=== PATIENT | female | born 1975 | race Caucasian/White ===

== ENCOUNTER 2017-03-31 13:34 | Emergency (ER) | payer OTHER ==
[2017-03-31 13:50] VITALS: BP 104/72
--- NOTE | 2017-03-31 14:49 | UC ---
Complaint Female HPI - HPI Summary HPI Summary: patient has had burning with urination no abdominal pain. Does have a complex ovarian cyst and HX of herpes. is not sure if it is a UTI or something else going on. - History Of Current Complaint Chief Complaint: UCGU Stated Complaint: URINARY COMPLAINT Time Seen by Provider: 03/31/17 14:11 Hx Obtained From: Patient Hx Last Menstrual Period: 03/21/15 ?: No Onset/Duration: Sudden Onset, Lasting Days Timing: Lasting Days Severity Initially: Moderate Severity Currently: Moderate Character: Burning Aggravating Factor(s): Urination - Allergies/Home Medications Allergies/Adverse Reactions: Allergies Allergy/AdvReac Type Severity Reaction Status Date / Time No Known Allergies Allergy Verified 03/31/17 13:50 PMH/Surg Hx/FS Hx/Imm Hx Previously Healthy: Yes - Surgical History Surgical History: Yes Surgery Procedure, Year, and Place: left ankle nov 2015 - Family History Known Family History: Positive: None Negative: Cardiac Disease, Hypertension - Social History Alcohol Use: Occasionally Substance Use Type: None Smoking Status (MU): Never Smoked Tobacco Review of Systems Constitutional: Negative Skin: Negative Eyes: Negative ENT: Negative Respiratory: Negative Cardiovascular: Negative Gastrointestinal: Negative Genitourinary: Dysuria Motor: Negative Neurovascular: Negative Musculoskeletal: Negative Neurological: Negative Psychological: Negative All Other Systems Reviewed And Are Negative: Yes Physical Exam Triage Information Reviewed: Yes Appearance: Well-Appearing, Well-Nourished, Pain Distress Vital Signs: Initial Vital Signs Temp 98.6 F 03/31/17 13:45 Pulse 72 03/31/17 13:45 Resp 16 03/31/17 13:45 BP 104/72 03/31/17 13:45 Pulse Ox 100 03/31/17 13:45 Vital Signs Reviewed: Yes Eye Exam: Normal Eyes: Positive: Conjunctiva Clear ENT: Positive: Hearing grossly normal, Pharynx normal, TMs normal Dental Exam: Normal Neck exam: Normal Neck: Positive: Supple, Nontender, No Lymphadenopathy Respiratory Exam: Normal Respiratory: Positive: Chest non-tender, Lungs clear, Normal breath sounds Cardiovascular Exam: Normal Cardiovascular: Positive: RRR, No Murmur, Pulses Normal Abdominal Exam: Normal Abdomen Description: Positive: Nontender, No Organomegaly, Soft Bowel Sounds: Positive: Present Musculoskeletal Exam: Normal Musculoskeletal: Positive: Strength Intact, ROM Intact, No Edema Neurological Exam: Normal Neurological: Positive: Alert, Muscle Tone Normal Psychological Exam: Normal Skin Exam: Normal Complaint Female Dx - Course Course Of Treatment: hx obtained, exam performed, meds reviewed, UA obtained, pevlic exam performed, patient had recent STD testing - Differential Dx/Diagnosis Differential Diagnosis/HQI/PQRI: Cervicitis, Pelvic Inflammatory Disease, Sexually Transmitted Disease, Ureteral Stone, Urinary Tract Infection, Other - herpes outbreak Provider Diagnoses: PID. dysuria. herpes Discharge - Discharge Plan Condition: Stable Disposition: HOME Patient Education Materials: Pelvic Inflammatory Disease (ED) Additional Instructions: 1. Take the medication as prescribed. 2. Your specimins should have results in the next few days. 3. Continue with your probiotics due to the anitibiotic use. 4. Increase fluid intake 5. take the doxycycline with food.
[2017-03-31] MEDS ORDERED: cefTRIAXone VIAL(*) 250 MG VIAL IM ONE (15:11)
[2017-03-31] MEDS ORDERED: Lidocaine 1% MPF* 2 ML VIAL ONE (15:18)
--- NOTE | 2017-04-01 22:36 | UC ---
Progress - Progress Note Progress Note: Pt was seen 03/31/17. Cx + pos for gardnerella. Will treat with flagyl 500mgs po bid x 7 days. No alcolhol with this medicine. f/u with pcp or [facility]. I will send in rx, staff to call in AM>
--- NOTE | 2017-04-03 14:31 | UC ---
Progress - Progress Note Progress Note: Pt was seen 03/31/17. Cx + pos for gardnerella. Will treat with flagyl 500mgs po bid x 7 days. No alcolhol with this medicine. f/u with pcp or [facility]. I will send in rx, staff to call in AM> THIS IS A NEW NOTE FROM DR ROSALES ON 04/03/17 FLAGYL WAS NOT RECIEVED BY PHARM. PT CALLED TODAY ABOUT RX. RX SENT IN BY ME.
== END 2017-03-31 15:52 | disposition home or self-care (01) ==
LOC: UCCORT 13:34
DX: N73.9 Female pelvic inflammatory disease, unspecified (principal); R30.0 Dysuria; A60.00 Herpesviral infection of urogenital system, unspecified
CPT/HCPCS: 81003; 87086; 87480; 87491; 87510; 87591; 87661; 96372; 99212; G0463; J0696